=== PATIENT | female | born 1990 | race Caucasian/White ===

== ENCOUNTER 2017-12-24 17:38 | Emergency (ER) | payer BC ==
[2017-12-24] MEDS ORDERED: ONDANSETRON HCL IV 4 MG/2 ML VIAL IV ONE (17:54)
[2017-12-24] MEDS ORDERED: 0.9 % SODIUM CHLORIDE 1,000 ML BAG IV ONE (17:54)
[2017-12-24] MEDS ORDERED: MAGNESIUM HYDROXIDE/AL HYDROX 30 ML, LIDOCAINE VISC 2% 200 MG PO ONE ×2 (17:54)
--- NOTE | 2017-12-24 17:58 | Emergency Department Record ---
History of Present Illness - General Chief Complaint: Abdominal Pain Stated Complaint: ABDOMINAL PAIN Time Seen by Provider: 12/24/17 17:50 Source: Patient Mode of Arrival: Ambulatory Limitations: No limitations - History of Present Illness Initial Comments: The patient is here due to the acute onset of epigastric AP just over an hour ago. The pain is sharp and stabbing and radiates mildly laterally to each side. She denies any nausea, vomiting, diarrhea, or back pain. She has no hx of similar problems and no recent illnesses. The patient's only abdominal surgery is a BTL. MD Complaint: Abdominal pain Onset/Timin -: Hour(s) Location: Epigastric Severity: Moderate Quality: Burning, Stabbing Consistency: Constant Improves With: Nothing Worsens With: Other Associated Symptoms: Denies other symptoms Treatments Prior to Arrival: Antacids - Related Data LMP Date: 12/05/17 Patient : No Allergies Allergy/AdvReac Type Severity Reaction Status Date / Time codeine Allergy headaches Verified 12/24/17 17:41 Travel Screening - Travel/Exposure Within Last 30 Days Have you traveled within the last 30 days?: No - Travel/Exposure Within Last Year Have you traveled outside the [place] in the last year?: No - Additonal Travel Details Have you been exposed to anyone with a communicable illness?: No - Travel Symptoms Symptom Screening: None Review of Systems Constitutional: Denies: Chills, Fever Past Medical History - SOCIAL HISTORY Smoking Status: Never smoker Alcohol Use: Occasional Drug Use: None - RESPIRATORY Hx Respiratory Disorders: Yes Hx Asthma: Yes - CARDIOVASCULAR Hx Cardio Disorders: No - NEURO Hx Neuro Disorders: No - GI Hx GI Disorders: No - Hx Genitourinary Disorders: No - ENDOCRINE Hx Endocrine Disorders: No - MUSCULOSKELETAL Hx Musculoskeletal Disorders: No - PSYCH Hx Psych Problems: No - HEMATOLOGY/ONCOLOGY Hx Hematology/Oncology Disorders: No Family Medical History Any Significant Family History?: No Physical Exam - General General Appearance: Alert, Oriented x3, Cooperative, No acute distress - Head Head exam: Atraumatic, Normocephalic, Normal inspection - Eye Eye exam: Normal appearance, PERRL - Neck Neck exam: Normal inspection, Full ROM. negative: Tenderness - Respiratory Respiratory exam: Normal lung sounds bilaterally. negative: Respiratory distress - Cardiovascular Cardiovascular Exam: Regular rate, Normal rhythm, Normal heart sounds - GI/Abdominal GI/Abdominal exam: Soft, Tenderness (There is mild to moderate epigastric tenderness to palpation. ). negative: Distended, Hypoactive bowel sounds, Rebound, Rigid - Extremities Extremities exam: Normal inspection, Full ROM, Normal capillary refill. negative: Tenderness Image of Full Body: 1 - Area of pain and tenderness. Course Vital Signs 12/24/17 17:43 Temperature 98.5 F Pulse Rate 91 H Respiratory 16 Rate Blood Pressure 104/68 Pulse Ox 98 - Reevaluation(s) Reevaluation #1: The patient was no better after the GI medicine so we did give her Carafate. Due to the pain in the epigastric area we did order an abdominal US. The patient's care will be turned over to Dr. Quispe at 19:00 due to shift change. 12/24/17 18:43 Medical Decision Making - Data Complexity MDM Data: Labs Ordered and/or Reviewed - Lab Data Result diagrams: 12/24/17 18:15 12/24/17 18:15 Disposition Forms: Patient Portal Access Quality - Quality Measures Quality Measures: N/A - Blood Pressure Screening View Details: Yes Does Patient Have Any of the Following: No Blood Pressure Classification: Normal BP Reading Systolic Measurement: 104 Diastolic Measurement: 68 Screening for High Blood Pressure: < Normal BP, F/U Not Required > [G8783]
[2017-12-24 18:21] LABS: BASO % 0.2 % (0-6); EOS % 1.1 % (0-6); GRAN % 67.5 % (47-80); HEMATOCRIT 38.6 % (35.0-47.0); HEMOGLOBIN 12.8 gm/dl (11.6-16.0); LYMPH % 22.3 % (16-45); MEAN CELL VOLUME 88.9 fl (81-97); MEAN CORPUSCULAR HEMOGLOBIN 29.5 pg (27-33); MEAN CORPUSCULAR HGB CONC 33.2 g/dl (32-36); MEAN PLATELET VOLUME 10.1 fl (7.4-10.4); MONO % 8.9 % (0-9); PLATELET COUNT 371 K/uL (130-400); RED BLOOD COUNT 4.34 M/uL (3.80-5.40); RED CELL DISTRIBUTION WIDTH 12.6 % (11.5-14.5); WHITE BLOOD COUNT W/O DIFF 8.1 K/uL (4.2-12.2)
[2017-12-24] MEDS ORDERED: SUCRALFATE 1 G/10 ML UD PO ONE (18:24)
[2017-12-24 18:30] LABS: BLOOD UREA NITROGEN 15 mg/dL (6-20); CREATININE 0.7 mg/dL (0.5-0.9); EST GLOMERULAR FILTRATION RATE > 60 mL/min
[2017-12-24 18:31] LABS: TOTAL PROTEIN 6.9 g/dL (6.6-8.7)
[2017-12-24 18:33] LABS: GLUCOSE,RANDOM 101 mg/dL (74-109)
[2017-12-24 18:36] LABS: ALBUMIN 4.6 g/dL (4.0-5.0); ALKALINE PHOSPHATASE 64 U/L (35-104); ALT/SGPT 12 U/L (<33); AST/SGOT 13 U/L (10.0-35.0); LIPASE 29 U/L (13-60)
[2017-12-24 18:44] LABS: BILIRUBIN,DIRECT < 0.2 mg/dL (0-0.3)
[2017-12-24] MEDS ORDERED: PANTOPRAZOLE SODIUM IV 40 MG VIAL IVP ONE (19:18)
[2017-12-24] MEDS ORDERED: MORPHINE SULFATE 5 MG/ML PFS IVP ONE (19:18)
[2017-12-24] MEDS ORDERED: ACETAMINOPHEN 1,000 MG/100 ML BTL IVPB ONE (19:59)
[2017-12-24] MEDS ORDERED: HYDROMORPHONE HCL 1 MG/ML SYRINGE IVP ONE (20:51)
[2017-12-24] MEDS ORDERED: HYOSCYAMINE SULFATE ODT 0.125 MG TAB.SUBL SL ONE ×2 (21:14→22:20)
[2017-12-24] MEDS ORDERED: KETOROLAC 30 MG/ML VIAL IVP ONE (21:37)
[2017-12-24] MEDS ORDERED: ONDANSETRON 4 MG ODT TABLET SL ONE (22:20)
--- NOTE | 2017-12-24 22:24 | Emergency Department Record ---
History of Present Illness - General Chief Complaint: Abdominal Pain Stated Complaint: ABDOMINAL PAIN Time Seen by Provider: 12/24/17 17:50 Source: Patient Mode of Arrival: Ambulatory Limitations: No limitations - History of Present Illness MD Complaint: Abdominal pain Onset/Timin -: Hour(s) Location: Epigastric Severity: Moderate Quality: Burning, Stabbing Consistency: Constant Improves With: Nothing Worsens With: Other Associated Symptoms: Denies other symptoms Treatments Prior to Arrival: Antacids - Related Data LMP Date: 12/05/17 Patient : No Previous Rx's Medication Instructions Recorded Hyoscyamine Sulfate [Levsin-Sl] 0.125 mg SL Q8H #15 tab.subl 12/24/17 Ondansetron [Zofran Odt] 4 mg PO Q8H #15 tab.rapdis 12/24/17 Allergies Allergy/AdvReac Type Severity Reaction Status Date / Time codeine Allergy headaches Verified 12/24/17 17:41 Travel Screening - Travel/Exposure Within Last 30 Days Have you traveled within the last 30 days?: No - Travel/Exposure Within Last Year Have you traveled outside the [place] in the last year?: No - Additonal Travel Details Have you been exposed to anyone with a communicable illness?: No - Travel Symptoms Symptom Screening: None Review of Systems Constitutional: Denies: Chills, Fever Past Medical History - SOCIAL HISTORY Smoking Status: Never smoker Alcohol Use: Occasional Drug Use: None - RESPIRATORY Hx Respiratory Disorders: Yes Hx Asthma: Yes - CARDIOVASCULAR Hx Cardio Disorders: No - NEURO Hx Neuro Disorders: No - GI Hx GI Disorders: No - Hx Genitourinary Disorders: No - ENDOCRINE Hx Endocrine Disorders: No - MUSCULOSKELETAL Hx Musculoskeletal Disorders: No - PSYCH Hx Psych Problems: No - HEMATOLOGY/ONCOLOGY Hx Hematology/Oncology Disorders: No Family Medical History Any Significant Family History?: No Physical Exam - General Limitations: No limitations Course Vital Signs 12/24/17 12/24/17 12/24/17 17:43 19:40 20:49 Temperature 98.5 F Pulse Rate 91 H Pulse Rate [ 89 66 Pulse Ox Probe] Respiratory 16 24 18 Rate Blood Pressure 104/68 Blood Pressure 108/65 93/55 [Right Arm] Pulse Ox 98 100 100 12/24/17 21:27 Temperature Pulse Rate Pulse Rate [ 82 Pulse Ox Probe] Respiratory 18 Rate Blood Pressure Blood Pressure 96/61 [Right Arm] Pulse Ox 100 - Reevaluation(s) Reevaluation #1: The case was signed out at the time of shift turn over The initial labs were reviewed. No acute changes on the labs The US was reviewed. No acute process. Because of persistent pain a CT was performed that demonstrated large about of colonic stool The patient had normal labs, no fever, no vomiting. She was given Miralax Rx with Zofran and Levsin She was given instructions regarding returning to the ED for recheck if not improving or any concerns At the time of final discharge her pain was controlled and her questions were answered Medical Decision Making - Lab Data Result diagrams: 12/24/17 18:15 12/24/17 18:15 Lab Results 12/24/17 12/24/17 12/24/17 Range/Units 18:15 18:15 18:15 WBC 8.1 (4.2-12.2) K/uL RBC 4.34 (3.80-5.40) M/uL Hgb 12.8 (11.6-16.0) gm/dl Hct 38.6 (35.0-47.0) % MCV 88.9 (81-97) fl MCH 29.5 (27-33) pg MCHC 33.2 (32-36) g/dl RDW 12.6 (11.5-14.5) % Plt Count 371 (130-400) K/uL MPV 10.1 (7.4-10.4) fl Gran % 67.5 (47-80) % Lymphocytes % 22.3 (16-45) % Monocytes % 8.9 (0-9) % Eosinophils % 1.1 (0-6) % Basophils % 0.2 (0-6) % Sodium 135 L (136-145) mmol/L Potassium 3.7 (3.4-4.5) mmol/L Chloride 100 (98-107) mmol/L Carbon Dioxide 24.0 (22-29) mmol/L Anion Gap 11.0 (7-16) BUN 15 (6-20) mg/dL Creatinine 0.7 (0.5-0.9) mg/dL Estimated GFR > 60 mL/min Random Glucose 101 (74-109) mg/dL Calcium 8.9 (8.6-10.0) mg/dL Total Bilirubin 0.30 (0.2-1.0) mg/dL Direct Bilirubin < 0.2 (0-0.3) mg/dL AST 13 (10.0-35.0) U/L ALT 12 (<33) U/L Alkaline Phosphatase 64 (35-104) U/L Total Protein 6.9 (6.6-8.7) g/dL Albumin 4.6 (4.0-5.0) g/dL Lipase 29 (13-60) U/L Serum HCG, Qual Negative (NEGATIVE) Disposition Disposition: Discharge Clinical Impression: Abdominal pain, Constipation Disposition: Home, Self-Care Condition: (1) Good Instructions: Constipation (ED), Abdominal Pain (ED) Additional Instructions: Return if you have fever, vomiting, or uncontrolled pain Start the Miralax tomorrow as directed Stay well hydrated Prescriptions: Hyoscyamine Sulfate [Levsin-Sl] 0.125 mg SL Q8H #15 tab.subl Ondansetron [Zofran Odt] 4 mg PO Q8H #15 tab.rapdis Referrals: JAVAN MOORE [DOCTOR OF OSTEOPATH] - [facility] [Provider Group] Forms: Patient Portal Access Time of Disposition: 22:23 Quality - Quality Measures Quality Measures: N/A - Blood Pressure Screening Does Patient Have Any of the Following: No Blood Pressure Classification: Normal BP Reading Systolic Measurement: 92 Diastolic Measurement: 48 Screening for High Blood Pressure: < Normal BP, F/U Not Required > [G8783]
--- NOTE | 2017-12-25 14:41 | ULTRASOUND REPORT ---
EXAM: ULTRASOUND OF THE ABDOMEN HISTORY: EPIGASTRIC PAIN. TECHNIQUE: Complete transabdominal ultrasound of the abdomen was obtained. Comparison: None. FINDINGS: The liver is homogeneous in echotexture without focal lesion. The gallbladder is contracted, limiting its evaluation, however, no definitive gallbladder wall thickening. No gallstones. No pericholecystic fluid. The CBD measures 3.8 mm. The visualized pancreas is unremarkable. The spleen is unremarkable at 10 cm. The right kidney measures 10 x 5 cm and the left kidney measures 10 x 4 cm. No renal calculus, mass, or hydronephrosis. The visualized abdominal aorta and inferior vena cava are unremarkable. No free fluid. IMPRESSION: UNREMARKABLE ULTRASOUND OF THE ABDOMEN. JOB NUMBER: [id number] [facility]
--- NOTE | 2017-12-25 14:48 | CT SCAN REPORT ---
EXAM: CT OF THE ABDOMEN AND PELVIS HISTORY: PAIN. TECHNIQUE: CT of the abdomen and pelvis was performed following the IV administration of 100 ml of Omnipaque 300 contrast. Oral contrast was also administered. Comparison: Ultrasound from today's date. FINDINGS: Limited evaluation of the lung bases is unremarkable. The osseous structures are grossly intact. The liver, spleen, adrenal glands, pancreas, and kidneys are unremarkable. The gallbladder is present. No evidence for bowel obstruction. Tiny fat containing periumbilical hernia. There is a large amount of stool in the colon. Normal appendix. No free air. Trace of free fluid in the pelvis which may be physiologic. Bilateral ovarian follicles are suggested. IMPRESSION: THERE IS A LARGE AMOUNT OF STOOL IN THE COLON. BILATERAL OVARIAN FOLLICLES WITH A TRACE OF FREE FLUID IN THE PELVIS. THIS MAY BE PHYSIOLOGIC. J[facility] NUMBER: [id number] [facility]
== END 2017-12-24 22:46 | disposition home or self-care (01) ==
LOC: ER 17:38
DX: R10.13 Epigastric pain (principal); K59.00 Constipation, unspecified
CPT/HCPCS: 99284 ×2; 96365; 96375; 83690; 85025; 80076; 80048; 84703; 76700; 74177; Q9967; J1980; J1885; J2405; J2270; J1170; C9113; J7030

== ENCOUNTER 2018-10-12 06:07 | Day surgery (SDC) | payer BC ==
[2018-10-12] MEDS ORDERED: SEVOFLURANE 250 ML INH ONE (06:08)
[2018-10-12] MEDS ORDERED: PROPOFOL 10 MG/ML VIAL IV ONE (06:08)
[2018-10-12] MEDS ORDERED: ALFENTANIL HCL 500 MCG/1ML, 2ML AMP IV ONE (06:08)
[2018-10-12] MEDS ORDERED: LIDOCAINE 2% MDV (20MG/ML) 20ML VIAL IV ONE (06:08)
[2018-10-12] MEDS ORDERED: KETOROLAC 30 MG/ML VIAL IVP ONE (06:08)
[2018-10-12] MEDS ORDERED: MIDAZOLAM HCL 2MG/2ML VIAL IV ONE (06:08)
--- NOTE | 2018-10-12 20:01 | Operative Note ---
DATE OF SERVICE: 10/12/2018 PREOPERATIVE DIAGNOSIS: HEAVY MENSTRUAL BLEEDING. POSTOPERATIVE DIAGNOSIS: HEAVY MENSTRUAL BLEEDING. PROCEDURE PERFORMED: DIAGNOSTIC HYSTEROSCOPY, D&C WITH NOVASURE ABLATION. PHYSICIAN: BERNADINE MONTANO D.O. ANESTHESIA: GENERAL. COMPLICATIONS: NONE. ESTIMATED BLOOD LOSS: MINIMAL. PATHOLOGY: ENDOMETRIAL CURETTINGS. PROCEDURE: The patient was prepped for surgery and brought back to the Operative Suite. She was placed under general anesthesia. She was sterilely prepped and draped in the dorsal lithotomy position. A weighted speculum was placed in the vaginal vault. 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 The cervix was serially dilated to #14 [place]. The hysteroscope was then placed. Normal lining was visualized. There were no polyps noted. Both ostia were noted. The hysteroscope was then removed. Endometrial curettings were obtained. The uterus sounded to 9 cm. The NovaSure device was then placed. It had a length of 5 cm. The width was 2.8 cm. It ran at a power of 66 for 90 seconds. The NovaSure device was then removed. The tenaculum was removed. No bleeding was noted. The weighted speculum was removed. The patient was then awoken from general anesthesia and brought back to the Recovery Room in satisfactory condition. KATLYN
== END 2018-10-12 08:45 | disposition home or self-care (01) ==
LOC: SUR 06:07
PROVIDERS: ATTEND Obstetrics & Gynecology
DX: N92.0 Excessive and frequent menstruation with regular cycle (principal)
CPT/HCPCS: 58563; 00952; J1885